=== PATIENT | female | born 1990 | race Two or more races ===

== ENCOUNTER 2017-07-02 18:08 | Emergency (ER) | payer MEDICAID, OTHER ==
[~2017-07-02] VITALS: Ht 167.6 cm; Wt 63.5 kg
[2017-07-02 19:16] VITALS: BP 126/80
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
[2017-07-02] MEDS ORDERED: CYCLOBENZAPRINE10 MG ORAL (21:53)
[2017-07-02] MEDS ORDERED: BACITRACIN-P28.35 GM TP (21:53)
[2017-07-02] MEDS ORDERED: LIDOCAINE700 M1 TP (21:53)
[2017-07-02] MEDS ORDERED: TYLENOL EXTRA500 MG ORAL (21:53)
[2017-07-02] MEDS ORDERED: IBUPROFEN600 MG ORAL (21:53)
[2017-07-02 22:06] VITALS: BP 126/80
--- NOTE | 2017-07-03 12:23 | Diagnostic Imaging Report ---
Indication: pain Findings: 3 views of the left hand were obtained. Normal alignment is demonstrated. No acute fractures, erosions, or periosteal reaction are seen. Soft tissues are unremarkable. Impression: No acute findings.
--- NOTE | 2017-07-03 12:23 | Diagnostic Imaging Report ---
Indication: Pain Findings: 3 views of the left shoulder were obtained. Alignment of the left shoulder is normal. No acute fracture is identified. Soft tissues are unremarkable. Impression: Negative left shoulder examination
--- NOTE | 2017-07-03 12:23 | Diagnostic Imaging Report ---
Indication: pain Findings: 3 views of the right hand were obtained. Normal bony mineralization and alignment are demonstrated. No acute fractures, erosions, or periosteal reaction are seen. Soft tissues are unremarkable. Impression: No acute findings.
--- NOTE | 2017-07-03 12:26 | Diagnostic Imaging Report ---
Indication: Pain Comparison: None Findings: Two views of the right tibia and fibula were obtained. No acute fracture, malalignment, or periosteal reaction are identified. Soft tissues are unremarkable. Impression: Negative examination of the tibia and fibula
--- NOTE | 2017-07-03 12:26 | Diagnostic Imaging Report ---
Indication: Pain Comparison: None Findings: 3 views of the right foot were obtained. No acute fractures, malalignment, erosions or periostitis are identified. Soft tissues are unremarkable. Impression: No acute findings.
--- NOTE | 2017-07-03 12:27 | Diagnostic Imaging Report ---
Indication: Back pain Findings: 2 views of the thoracic spine were obtained. Normal bony mineralization and alignment are demonstrated. Vertebral body heights and intervertebral disc heights are normal. The posterior elements including the facets are unremarkable. Soft tissues are unremarkable. Impression: Negative thoracic spine series
== END 2017-07-02 22:06 | disposition home or self-care (01) ==
LOC: EDBD 18:08 → EMR 18:15
DX: S60.222A Contusion of left hand, initial encounter (principal); S60.221A Contusion of right hand, initial encounter; S20.229A Contusion of unspecified back wall of thorax, initial encounter; S60.511A Abrasion of right hand, initial encounter; S60.512A Abrasion of left hand, initial encounter; S96.811A Strain of other specified muscles and tendons at ankle and foot level, right foot, initial encounter; S29.012A Strain of muscle and tendon of back wall of thorax, initial encounter; V43.52XA Car driver injured in collision with other type car in traffic accident, initial encounter; Y92.89 Other specified places as the place of occurrence of the external cause; Z88.0 Allergy status to penicillin
CPT/HCPCS: 72070; 81025; 99284